=== PATIENT | female | born 1950 | race Caucasian/White ===

== ENCOUNTER → 2016-12-31 | Outpatient (CLI) | payer MEDICARE, MEDICAID ==
[~2016-12-31] MED LIST: AMBIEN10 MG PO; ASACOL HD800 MG PO; ASPIRIN EC81 MG PO; BENADRYL25 MG PO; CILOSTAZOL50 MG PO; COLACE100 MG PO; DALIRESP500 MCG PO; DETROL LA2 MG PO; DIMETAPP COLD237 M1 PO; DITROPAN XL10 MG PO; DUONEB INH; HYDROCORTISO453.6 GM TOP; INCRUSE ELLI62.5 MCG INH; LACTAID1 TAB PO; NORCO 10-325 T1 EACH PO; NORVASC5 MG PO; NYSTATIN100000 UNI PO; OXYGEN M-15 INH; PAIN RELIEVER325 MG PO; PHARBETOL325 MG PO; PROAIR HFA8.5 GM INH; SYMBICORT 16010.2 GM INH; TEGRETOL200 MG PO; TESSALON PERLE100 MG PO; WELCHOL 625MG625 MG PO; XANAX0.25 MG PO; ZANTAC (NON-FO150 MG PO; ZOFRAN4 MG PO; ZOLOFT100 MG PO; ZYRTEC10 MG PO; [UNRECOGNIZED DRUG - OTHER] NS
== END | disposition disaster alternative care site (69) ==
LOC: GRAD 12-25 14:00
DX: R51 Headache (principal); Z53.8 Procedure and treatment not carried out for other reasons

== ENCOUNTER → 2017-04-21 | Day surgery (SDC) | payer MEDICARE, MEDICAID ==
[~2017-04-21] VITALS: Ht 144.8 cm; Wt 65.5 kg
--- NOTE | ~2017-04-21 | OR ---
PATIENT'S NAME: AMANDA RITCHIE [facility] AGE: 66 Y [address] ROOM: [place] [address] LOCATION: [facility] [place] DATE: 04/21/2017 OR/Procedure Report DISCHARGE DATE: FAMILY PHYSICIAN: Pratibha Vidal PA-C ATTENDING PHYSICIAN: Chuy Rueda SURGEON: Chuy Rueda MD SLEEVE SEPARATOR: DATE OF PROCEDURE: 04/21/2017 PROCEDURE PERFORMED: Amanda is here for T10 vertebroplasty. PREOPERATIVE DIAGNOSIS: T10 compression fracture. POSTOPERATIVE DIAGNOSIS: T10 compression fracture. PROCEDURE NOTE: The patient was taken to the Operating Room, and placed in a prone position with pressure points padded. Sterile prep and drape were performed in the usual fashion. Monitored anesthesia care was provided. I used two C-arms to provide fluoroscopic views of the AP and lateral aspects of the T10 vertebra. After locating the T10 vertebra, I anesthetized skin superior and lateral to the T10 pedicle on the right. I inserted a spinal needle and anesthetized skin and subcutaneous tissue down to the periosteum on the lateral aspect of the pedicle. I then made an incision with an 11-blade. I inserted a 13-gauge trocar, and made contact with the lateral aspect of the pedicle. I confirmed placement with AP and lateral x-rays. Then, using a mallet, I slowly directed the trocar into the pedicle from using a lateral-to- medial trajectory, making contact with the posterior aspect of the vertebral body before reaching the medial aspect of the pedicle. I drove the trocar into the vertebral body anteriorly and across the midline to the left side. I then mixed my bone cement, and after allowing it to harden sufficiently, I infused cement under fluoroscopy in the lateral view. I observed spread of the cement anterior and laterally until cement covered the anterior half and both sides of the vertebral body. There was no retropulsion of cement. I cleared the trocar of cement with a stylet, and again ensured there was no retropulsion of cement. The patient was kept in the prone position for approximately 10 minutes to allow the cement to harden. Using a skin glue, I closed her incision. DISPOSITION: The patient was sent back to [facility]. POSTOPERATIVE PLAN: A prescription was given for doxycycline 100 mg p.o. b.i.d. She will follow up in one week. PATIENT'S NAME: AMANDA RITCHIE [facility] AGE: 66 Y [address] ROOM: [place] [address] LOCATION: [facility] [place] DATE: 04/21/2017 OR/Procedure Report DISCHARGE DATE: FAMILY PHYSICIAN: Pratibha Vidal PA-C ATTENDING PHYSICIAN: Chuy Rueda MD JAZMIN NAJERA/brannon /[id number] d: 04/21/172111 t: 05/16/17 1510, OPERATIVE SUMMARY
[2017-04-21 15:22] LABS: BASOPHIL % 0.1 %; EOSINOPHIL # 0.3 K/uL (0.0-0.5); EOSINOPHIL % 3.1 %; HEMATOCRIT 39.8 % (33.0-46.0); HEMOGLOBIN 12.9 g/dL (10.0-15.0); IMMATURE GRANULOCYTE % 0.5 %; MCH 31.9 pg (27.0-34.0); MCHC 32.4 gm/dL (32.0-36.5); MCV 98.3 fl (83.0-98.0); MONOCYTE # 0.8 K/uL (0.0-1.0); MONOCYTE % 9.8 %; MPV 9.1 fl (9.4-12.4); NEUTROPHIL % 61.5 %; NRBC % 0 /100WBC (0-0.00); PLATELET COUNT 192 K/uL (150-450); WBC 8.1 K/uL (4.0-11.0)
[2017-04-21 15:23] LABS: RBC 4.05 M/uL (3.50-5.50)
[2017-04-21 15:41] LABS: ALBUMIN 3.1 gm/dL (3.5-5.0); ALK PHOS 103 IU/L (33-138); ALT 14 IU/L (12-78); BLOOD UREA NITROGEN 11 mg/dL (6-24); CHLORIDE 107 mMol/L (96-110); CREATININE 0.9 mg/dL (0.5-1.1); SODIUM 138 mMol/L (135-145); TOTAL BILIRUBIN 0.4 mg/dL (0.0-1.5); TOTAL PROTEIN 7.2 g/dL (6.0-8.4)
[2017-04-21 15:42] LABS: AST 21 IU/L (10-40); POTASSIUM 4.3 mMol/L (3.7-5.1)
== END | disposition disaster alternative care site (69) ==
LOC: GPOC 04-18 15:00 → GSDC 10:00
PROVIDERS: Anesthesiology Pain Medicine
PROC: 0PU43JZ Supplement Thoracic Vertebra with Synthetic Substitute, Percutaneous Approach (ICD-10-PCS; principal; 2017-04-21)
DX: M80.88XA Other osteoporosis with current pathological fracture, vertebra(e), initial encounter for fracture (principal); M19.90 Unspecified osteoarthritis, unspecified site; F32.9 Major depressive disorder, single episode, unspecified; J44.9 Chronic obstructive pulmonary disease, unspecified; F17.210 Nicotine dependence, cigarettes, uncomplicated; K21.9 Gastro-esophageal reflux disease without esophagitis; D64.9 Anemia, unspecified; I25.10 Atherosclerotic heart disease of native coronary artery without angina pectoris; I25.2 Old myocardial infarction; E78.00 Pure hypercholesterolemia, unspecified; Z86.73 Personal history of transient ischemic attack (TIA), and cerebral infarction without residual deficits; G89.4 Chronic pain syndrome; Z95.1 Presence of aortocoronary bypass graft; Z90.49 Acquired absence of other specified parts of digestive tract; Z98.890 Other specified postprocedural states; Z79.82 Long term (current) use of aspirin; Z79.899 Other long term (current) drug therapy; Z88.0 Allergy status to penicillin; Z88.1 Allergy status to other antibiotic agents; Z88.5 Allergy status to narcotic agent; Z88.2 Allergy status to sulfonamides
CPT/HCPCS: C1713; J2001; J3010; J7030; J7060